=== PATIENT | male | born 1975 | race Caucasian/White ===

== ENCOUNTER → 2017-04-19 | Outpatient (CLI) | payer BC | LOC: BMCIMAGING 09:17 | PROVIDERS: ATTEND Family Medicine | DX: S62.002A Unspecified fracture of navicular [scaphoid] bone of left wrist, initial encounter for closed fracture (principal) ==

== ENCOUNTER → 2017-05-13 | Outpatient (CLI) | payer BC | LOC: BMCIMAGING 10:09 | PROVIDERS: ATTEND Orthopaedic Surgery Hand Surgery | DX: S62.022A Displaced fracture of middle third of navicular [scaphoid] bone of left wrist, initial encounter for closed fracture (principal) ==

== ENCOUNTER → 2017-06-05 | Outpatient (CLI) | payer BC | LOC: BMCIMAGING 09:14 | PROVIDERS: ATTEND Orthopaedic Surgery Hand Surgery | DX: S62.025D Nondisplaced fracture of middle third of navicular [scaphoid] bone of left wrist, subsequent encounter for fracture with routine healing (principal) ==